=== PATIENT | female | born 1930 | race Caucasian/White ===

== ENCOUNTER 2017-01-01 17:36 | Emergency (ER) | payer MEDICARE, OTHER ==
[2017-01-01 18:02] VITALS: BP 148/71
--- NOTE | 2017-01-01 18:32 | UC ---
Complaint Female HPI - HPI Summary HPI Summary: Urinary pain, frequency, urgency starting today. Hx of frequent UTIs, was on daily macrobid for a year, was told to stop it by hyperbaric tech about 8 or 9 days ago before her transarterial valve replacement, she wasn't sure why. - History Of Current Complaint Chief Complaint: UCGU Stated Complaint: URINARY Time Seen by Provider: 01/01/17 18:06 Hx Obtained From: Patient, Family/Heel Sprayer First ?: No Onset/Duration: Gradual Onset, Lasting Hours Timing: Constant Severity Initially: Mild Severity Currently: Mild Character: Burning Aggravating Factor(s): Urination Associated Signs And Symptoms: Negative: Fever, Back Pain - Allergies/Home Medications Allergies/Adverse Reactions: Allergies Allergy/AdvReac Type Severity Reaction Status Date / Time Midazolam [From Versed] Allergy Severe DROP IN BP Verified 01/01/17 17:49 Morphine and Related Allergy Intermediate DIZZINES, Verified 11/16/15 19:24 FAINTNESS. 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 TAVR - Family History Known Family History: Positive: Hypertension - Social History Occupation: Retired Alcohol Use: Rare Substance Use Type: None Smoking Status (MU): Never Smoked Tobacco Have You Smoked in the Last Year: No - Immunization History Most Recent Influenza Vaccination: JUL 2016 Most Recent Tetanus Shot: 04/2011 Most Recent Pneumonia Vaccination: 2011 Review of Systems Constitutional: Negative Skin: Negative Eyes: Negative ENT: Negative Respiratory: Negative Cardiovascular: Negative Gastrointestinal: Negative Genitourinary: Frequency, Urgency Motor: Negative Neurovascular: Negative Musculoskeletal: Negative Neurological: Negative Psychological: Negative All Other Systems Reviewed And Are Negative: Yes Physical Exam Triage Information Reviewed: Yes Appearance: Well-Appearing, No Pain Distress, Thin Vital Signs: Initial Vital Signs Temp 98.5 F 01/01/17 17:50 Pulse 91 01/01/17 17:50 Resp 20 01/01/17 17:50 BP 148/71 01/01/17 17:50 Pulse Ox 96 01/01/17 17:50 Vital Signs Reviewed: Yes Eye Exam: Normal Eyes: Positive: Conjunctiva Clear ENT: Positive: Pharynx normal, Other: - wearing hearing aides. Negative: Tonsillar swelling, Tonsillar exudate Dental Exam: Other - dentures Neck exam: Normal Neck: Positive: Supple, Nontender, No Lymphadenopathy Respiratory Exam: Normal Respiratory: Positive: Chest non-tender, Lungs clear, Normal breath sounds, No respiratory distress, No accessory muscle use Cardiovascular Exam: Normal Cardiovascular: Positive: RRR, No Murmur Abdomen Description: Negative: CVA Tenderness (R), CVA Tenderness (L) Musculoskeletal Exam: Normal Neurological Exam: Normal Psychological Exam: Normal Skin Exam: Normal Complaint Female Dx - Differential Dx/Diagnosis Provider Diagnoses: UTI Discharge - Discharge Plan Condition: Stable Disposition: HOME Prescriptions: Ciprofloxacin HCl [Cipro 500 MG TAB] 500 mg PO BID #10 tab Patient Education Materials: Urinary Tract Infection in Women (ED) Referrals: Gregg Estes MD [Primary Care Provider] - 7 Days Additional Instructions: Please see Dr. Estes in about a week to make sure your infection is cleared, and to discuss whether you should be restarting your macrobid.
== END 2017-01-01 18:42 | disposition home or self-care (01) ==
LOC: UCCORT 17:36
DX: N39.0 Urinary tract infection, site not specified (principal); Z87.440 Personal history of urinary (tract) infections; Z95.2 Presence of prosthetic heart valve; Z79.01 Long term (current) use of anticoagulants; Z96.653 Presence of artificial knee joint, bilateral; Z98.42 Cataract extraction status, left eye; Z98.41 Cataract extraction status, right eye; Z88.5 Allergy status to narcotic agent; Z88.2 Allergy status to sulfonamides; Z88.8 Allergy status to other drugs, medicaments and biological substances
CPT/HCPCS: 81003; 87077; 87086; 87186; 99212; G0463

== ENCOUNTER 2018-01-31 16:24 | Emergency (ER) | payer MEDICARE, OTHER ==
--- OUTSIDE RECORDS SUMMARY | 2018-01-31 17:28 | XMS REPORT ---
:1930 External Reference #:[id number] Author Organization [facility] Address [address] [place] [address] Phone [phone] Care Team Providers Name Role Phone Vladimir Antunez MD Care Team Information Customer Service Teller Unavailable Gregg Estes MD Primary Care Physician Unavailable Payers Type Date Identification Numbers Payment Provider Subscriber Medicare Primary Policy Number: [id number] Medicare Brenda Ahn PayID: [id number] [address] [place] [address] [facility] Part B Policy Number: [id number] Apwu Brenda Ahn [address] [place] [address] Problems Date Description Provider Status Onset: 11/18/2014 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., [facility], Active coronary artery w/o ang pctrs [facility] Onset: 12/17/2016 Encounter for planned Willie Alvarado M.D., [facility], Active postprocedural wound closure [facility] Social History Type Date Description Comments Marital Status Lives With Alone Occupation Retired Cigarette Use Never Smoked Cigarettes Cigars Never Smoked Cigars Pipe Never Smoked A Pipe Smokeless Tobacco Never Used Smokeless Tobacco ETOH Use Denies alcohol use Smoking Patient has never smoked Recreational Drug Use Denies Drug Use Daily Caffeine Consumes on average 3 cups of regular coffee per day Exercise Type/Frequency Exercises rarely Allergies, Adverse Reactions, Alerts Date Description Reaction Status Severity Comments 08/12/2014 Versed active 08/12/2014 Artane loss of short term active Moderate to Severe memory 08/12/2014 Sulfa Antibiotics Urticaria active Moderate to Severe Medications Medication Date Status Form Strength Qnty SIG Indications Ordering Provider Clonazepam 01/02 Active Tablets 0.25mg 30tab 1 po qhs G24.4 Harinder Whitehead Zarina s [place] Clements Calcium Active Tablets 2 po qd Unknown 600/Vitamin D /0000 Botox Active Solution Unknown / Rec Aspirin DR Active Tablets 81mg [address] Calcitonin Active Solution 200Unit/A 3.7un spray one Unknown ([place]) / ct its spray intranasally every day alternating nostrils Procrit Active Solution 21803Evaq 1.5 Unknown /0000 /ML milliliters sc q 2 weeks as needed Nexium Active Capsules 20mg 30cap 1 by mouth Unknown /0000 DR brewster every day Folic Acid Active Tablets 1mg 1 by mouth Unknown /0000 every day Levothyroxine Active Tablets 88mcg 1 by mouth Unknown Sodium / every day Amoxicillin Active Tablets 500mg 4 tab by Unknown /0000 mouth 1 hour prior to dental appointment. Vitamin D3 Active Capsules 2000Unit 1 by mouth Unknown /0000 every day Preservision Active Capsules 2 by mouth Unknown Areds every evening Clobetasol Active Solution 0.05% apply to Unknown Propionate scalp prn Metoprolol 12/17 Hx Tablets 25mg 30tab 1/2 a pill I25.10 Willie Succinate ER /2016 ER 24HR s by mouth Christiano, - every day [place], 03/05 [facility], [facility] Clonazepam 12/22 Hx Tablets 0.5mg 90tab 1 by mouth G24.4 Cole Dispers s three times a Deloris, - day as needed 01/02 Clonazepam Odt 12/03 Hx Tablets 0.5mg 90tab 1 by mouth Florence Dispers s three times a Judy LEGAL BILLING SPECIALIST - day as needed 12/22 Amitriptyline 06/18 Hx Tablets 10mg 90tab take 1 tablet Cole HCL s every night Ganesh Puentes MD 01/22 Clonazepam 08/29 Hx 0.5mg 90uni 1 po tid prn Harinder Whitehead Ganesh Gaston M.D. 12/03 Ultracet 01/02 Hx Tablets 37.5-325m 30tab 1 - 2 po Marisa /2012 g s q4-6hr prn Ganesh Kirk M.D. 11/17 Clonazepam Hx Tablets 0.5mg 60tab 1 po bid prn Harinder Whitehead / Ganesh Castillo M.D. 08/29 Unithroid Hx Tablets 88mcg by mouth Unknown /0000 every day - 05/09 Amitriptyline Hx Tablets 30tab 1 tab by Unknown HCL / s mouth at - bedtime 06/18 Vitamin B-12 Hx Tablets 1000mcg 1 by mouth Unknown /0000 once daily - 01/29 Vitamin B-6 00 Hx Tablets 250mg 1 by mouth Unknown /0000 every day. - 01/14 Magnesium Hx Tablets 250mg 1 by mouth Unknown /0000 every day - 01/01 Co Q 10 Hx Capsules 1 capsule by Unknown /0000 mouth daily - 01/01 Beta Carotene 00 Hx Capsules [id number] once daily Unknown /0000 - 01/01 Nitrofurantoin Hx Capsules 100mg 1 by mouth a Unknown Macrocrystal / day - 01/21 Unithroid 00 Hx Tablets 88mcg one capsule Unknown /0000 daily - 03/05 L-Arginine Hx Capsules 500mg 2 po qday Unknown /0000 - 01/22 Plavix Hx Tablets 75mg 1 by mouth Unknown /0000 every day - 10/02 Glucosamine 00/00 Hx Capsules 1500Com 1 po qday Unknown Chondroitin /0000 1500 Complex - Maximum 01/27 Strength Medications Administered in Office Medication Date Status Form Strength Qnty SIG Indications Ordering Provider Injection 01/02 Administered Injection Harinder Whitehead Onabotulinumtoxin /2017 Starr, A, 1 Unit M.D. Injection 10/03 Administered Injection Harinder S. Onabotulinumtoxin /2016 Augusta, A, 1 Unit M.D. Injection 06/20 Administered Injection Harinder S. Onabotulinumtoxin /2016 [place], A, 1 Unit M.D. Injection 03/07 Administered Injection Harinder S. Onabotulinumtoxin /2016 Starr, A, 1 Unit M.D. Injection 03/07 Administered Injection Harinder S. Onabotulinumtoxin /2016 [place], A, 1 Unit M.D. Injection 12/06 Administered Injection Harinder S. Onabotulinumtoxin /2016 Starr, A, 1 Unit M.D. Injection 12/06 Administered Injection Harinder S. Onabotulinumtoxin /2016 [place]a, A, 1 Unit M.D. Injection 08/16 Administered Injection Harinder S. Onabotulinumtoxin /2015 [place], A, 1 Unit M.D. Injection 08/16 Administered Injection Harinder S. Onabotulinumtoxin /2015 Starr, A, 1 Unit M.D. Injection 05/10 Administered Injection Harinder S. Onabotulinumtoxin /2015 Augusta, A, 1 Unit M.D. Injection 05/10 Administered Injection Harinder S. Onabotulinumtoxin /2015 [place], A, 1 Unit M.D. Injection 01/18 Administered Injection Harinder S. Onabotulinumtoxin /2015 [place], A, 1 Unit M.D. Injection 09/22 Administered Injection Harinder S. Onabotulinumtoxin /2014 Starr, A, 1 Unit M.D. Injection 06/02 Administered Injection Harinder S. Onabotulinumtoxin /2014 [place], A, 1 Unit M.D. Injection 02/17 Administered Injection Harinder S. Onabotulinumtoxin /2014 Starr, A, 1 Unit M.D. Injection 11/18 Administered Injection Harinder S. Onabotulinumtoxin /2014 Starr, A, 1 Unit M.D. Injection 08/12 Administered Injection Harinder S. Onabotulinumtoxin /2013 Starr, A, 1 Unit M.D. Injection 05/06 Administered Injection Harinder S. Onabotulinumtoxin /2013 Starr, A, 1 Unit M.D. Injection 05/06 Administered Injection Harinder S. Onabotulinumtoxin /2013 Starr, A, 1 Unit M.D. Injection 01/28 Administered Injection Harinder S. Onabotulinumtoxin /2013 Starr, A, 1 Unit M.D. Injection 01/28 Administered Injection Harinder S. Onabotulinumtoxin /2013 [place], A, 1 Unit M.D. Injection 10/29 Administered Injection Harinder S. Onabotulinumtoxin /2013 Starr, A, 1 Unit M.D. Injection 10/29 Administered Injection Harinder S. Onabotulinumtoxin /2013 [place], A, 1 Unit M.D. Injection 07/23 Administered Injection Harinder S. Onabotulinumtoxin /2012 Starr, A, 1 Unit M.D. Injection 07/23 Administered Injection Harinder S. Onabotulinumtoxin /2012 [place], A, 1 Unit M.D. Injection 04/02 Administered Injection Harinder S. Onabotulinumtoxin /2012 Starr, A, 1 Unit M.D. Injection 04/02 Administered Injection Harinder S. Onabotulinumtoxin /2012 Starr, A, 1 Unit M.D. Injection 12/25 Administered Injection Harinder S. Onabotulinumtoxin /2012 [place], A, 1 Unit M.D. Injection 12/25 Administered Injection Harinder S. Onabotulinumtoxin /2012 [place], A, 1 Unit M.D. Injection 09/12 Administered Injection Harinder S. Onabotulinumtoxin /2011 [place], A, 1 Unit M.D. Injection 09/12 Administered Injection Harinder S. Onabotulinumtoxin /2011 Starr, A, 1 Unit M.D. Injection 05/26 Administered Injection Harinder S. Onabotulinumtoxin /2011 [place], A, 1 Unit M.D. Vital Signs Date Vital Result Comment 01/30/2018 Height 61 inches 5'1" Weight 113.00 lb Heart Rate 109 /min BP Systolic Sitting 122 mmHg BP Diastolic Sitting 68 mmHg Respiratory Rate 17 /min Pain Level 3 O2 % BldC Oximetry 94 % Ra BMI (Body Mass Index) 21.3 kg/m2 01/02/2018 Height 61 inches 5'1" Weight 117.00 lb Heart Rate 92 /min BP Systolic 100 mmHg BP Diastolic 78 mmHg Respiratory Rate 28 /min no respiratory difficulties Pain Level 0 O2 % BldC Oximetry 94 % BMI (Body Mass Index) 22.1 kg/m2 10/03/2017 Height 61 inches 5'1" Weight 112.00 lb Heart Rate 92 /min BP Systolic Sitting 126 mmHg BP Diastolic Sitting 74 mmHg Respiratory Rate 16 /min Pain Level 0 BMI (Body Mass Index) 21.2 kg/m2 06/20/2017 Height 61 inches 5'1" Weight 115.38 lb Heart Rate 97 /min BP Systolic Sitting 144 mmHg BP Diastolic Sitting 82 mmHg Respiratory Rate 24 /min O2 % BldC Oximetry 91 % BMI (Body Mass Index) 21.8 kg/m2 03/07/2017 Height 61 inches 5'1" Weight 118.00 lb Heart Rate 93 /min BP Systolic Sitting 126 mmHg BP Diastolic Sitting 74 mmHg Respiratory Rate 24 /min O2 % BldC Oximetry 88 % Ra BMI (Body Mass Index) 22.3 kg/m2 02/26/2017 Height 61 inches 5'1" Weight 118.00 lb Heart Rate 76 /min BP Systolic Sitting 132 mmHg BP Diastolic Sitting 70 mmHg Respiratory Rate 16 /min Pain Level 0 BMI (Body Mass Index) 22.3 kg/m2 12/17/2016 Height 61 inches 5'1" Weight 118.00 lb w/ shoes Heart Rate 84 /min reg BP Systolic Sitting 130 mmHg Rue, peds cuff BP Diastolic Sitting 100 mmHg Rue, peds cuff BP Systolic Standing 132 mmHg Rue BP Diastolic Standing 100 mmHg Rue Respiratory Rate 16 /min BMI (Body Mass Index) 22.3 kg/m2 Ejection Fraction 60% as of 11/07/16 echo 12/06/2016 Height 61 inches 5'1" Weight 119.00 lb Heart Rate 98 /min BP Systolic Sitting 134 mmHg BP Diastolic Sitting 62 mmHg Respiratory Rate 16 /min Pain Level 0 BMI (Body Mass Index) 22.5 kg/m2 08/16/2016 Heart Rate 78 /min BP Systolic Sitting 138 mmHg BP Diastolic Sitting 68 mmHg Pain Level 0 O2 % BldC Oximetry 94 % 05/10/2016 Height 61 inches 5'1" Weight 125.00 lb Heart Rate 92 /min BP Systolic Sitting 128 mmHg BP Diastolic Sitting 78 mmHg BMI (Body Mass Index) 23.6 kg/m2 01/19/2016 Height 61 inches 5'1" Weight 122.00 lb Heart Rate 84 /min BP Systolic Sitting 132 mmHg BP Diastolic Sitting 88 mmHg BMI (Body Mass Index) 23.0 kg/m2 09/22/2015 Heart Rate 88 /min BP Systolic Sitting 122 mmHg BP Diastolic Sitting 68 mmHg 06/02/2015 Height 61 inches 5'1" Weight 122.00 lb Heart Rate 76 /min BP Systolic Sitting 132 mmHg BP Diastolic Sitting 68 mmHg BMI (Body Mass Index) 23.0 kg/m2 02/17/2015 Height 61 inches 5'1" Weight 123.00 lb Heart Rate 78 /min BP Systolic Sitting 114 mmHg BP Diastolic Sitting 82 mmHg BMI (Body Mass Index) 23.2 kg/m2 11/18/2014 Height 61 inches 5'1" Weight 125.00 lb Heart Rate 88 /min BP Systolic Sitting 142 mmHg BP Diastolic Sitting 78 mmHg BMI (Body Mass Index) 23.6 kg/m2 08/12/2014 Height 61 inches 5'1" Weight 125.00 lb Heart Rate 97 /min BP Systolic Sitting 138 mmHg BP Diastolic Sitting 86 mmHg BMI (Body Mass Index) 23.6 kg/m2 05/06/2014 Weight 125.00 lb Heart Rate 84 /min BP Systolic Sitting 122 mmHg BP Diastolic Sitting 60 mmHg 01/03/2012 Height 62 inches 5'2" Weight 130.00 lb BP Systolic 112 mmHg BP Diastolic 64 mmHg BMI (Body Mass Index) 23.8 kg/m2 Results Test Date Test Result H/L Range Note Cath Panel 12/10/2016 Partial Thrombo Time PTT 32.9 seconds 26.0-36.3 CBC Auto Diff 12/10/2016 White Blood Count 7.8 10^3/uL 3.5-10.8 Red Blood Count 3.46 10^6/uL Low 4.0-5.4 Hemoglobin 10.3 g/dL Low 12.0-16.0 Hematocrit 32 % Low 35-47 Mean Corpuscular Volume 94 fL 80-97 Mean Corpuscular Hemoglobin 30 pg 27-31 Mean Corpuscular HGB Conc 32 g/dL 31-36 Red Cell Distribution Width 30 % High 10.5-15 Platelet Count 347 10^3/uL 150-450 Mean Platelet Volume 9 um3 7.4-10.4 Abs Neutrophils 6.9 10^3/uL 1.5-7.7 Abs Lymphocytes 0.5 10^3/uL Low 1.0-4.8 Abs Monocytes 0 10^3/uL 0-0.8 Abs Eosinophils 0.3 10^3/uL 0-0.6 Abs Basophils 0.1 10^3/uL 0-0.2 Abs Nucleated RBC 0.01 10^3/uL Granulocyte % 88.9 % High 38-83 Lymphocyte % 6.2 % Low 25-47 Monocyte % 0.5 % Low 1-9 Eosinophil % 3.6 % 0-6 Basophil % 0.8 % 0-2 Nucleated Red Blood Cells % 0.1 Inr/Protime 12/10/2016 Inr 0.97 0.89-1.11 Basic Metabolic Panel 12/10/2016 Sodium 139 mmol/L 133-145 Potassium 4.7 mmol/L 3.5-5.0 Chloride 105 mmol/L 101-111 Co2 Carbon Dioxide 29 mmol/L 22-32 Anion Gap 5 mmol/L 2-11 Glucose 123 mg/dL High 70-100 Blood Urea Nitrogen 18 mg/dL 6-24 Creatinine 0.72 mg/dL 0.51-0.95 BUN/Creatinine Ratio 25.0 High 8-20 Calcium 9.5 mg/dL 8.6-10.3 Egfr Non- 76.6 >60 Egfr 98.5 >60 1 Laboratory test finding 12/10/2016 Pathologist Review (SEE NOTE) 2 1 Because ethnic data is not always readily available, this report includes an eGFR for both -Americans and non- Americans. The National Kidney Disease Education Program (NKDEP) does not endorse the use of the MDRD equation for patients that are not between the ages of 18 and 70, are , have extremes of body size, muscle mass, or nutritional status, or are non- or non-. According to the National Kidney Foundation, irrespective of diagnosis, the stage of the disease is based on the level of kidney function: Stage Description GFR(mL/min/1.73 m(2)) 1 Kidney damage with normal or decreased GFR 90 2 Kidney damage with mild decrease in GFR 60-89 3 Moderate decrease in GFR 30-59 4 Severe decrease in GFR 15-29 5 Kidney failure <15 (or dialysis) 2 Mild normocytic anemia noted additional studies as clinically warranted. Procedures Date CPT Code Description Status Comment 01/02/2018 15785 Destruction W/Neurolytic Agent, Completed Facial Nerve Muscle, Unilateral 10/03/2017 09451 Destruction W/Neurolytic Agent, Completed Facial Nerve Muscle, Unilateral 06/20/2017 79971 Destruction W/Neurolytic Agent, Completed Facial Nerve Muscle, Unilateral 03/07/2017 40740 Destruction W/Neurolytic Agent, Completed Facial Nerve Muscle, Unilateral 12/11/2016 37186 Cath PLMT&NJX L Ventriculog Completed Img S&I 12/11/2016 18029 EKG, Interpretation Only Completed 12/06/2016 79081 Destruction W/Neurolytic Agent, Completed Facial Nerve Muscle, Unilateral 08/17/2016 Diabetic Retinal Eye Exam Completed Document: 08/17/16 - Consult Ophthalmology-Bersani 08/16/2016 97491 Destruction W/Neurolytic Agent, Completed Facial Nerve Muscle, Unilateral 05/10/2016 35510 Destruction W/Neurolytic Agent, Completed Facial Nerve Muscle, Unilateral 03/05/2016 Diabetic Retinal Eye Exam Completed 01/19/2016 83742 Destruction W/Neurolytic Agent, Completed Facial Nerve Muscle, Unilateral 09/22/2015 61824 Destruction W/Neurolytic Agent, Completed Facial Nerve Muscle, Unilateral 06/02/2015 40914 Destruction W/Neurolytic Agent, Completed Facial Nerve Muscle, Unilateral 02/17/2015 24577 Destruction W/Neurolytic Agent, Completed Facial Nerve Muscle, Unilateral 11/18/2014 46140 Destruction W/Neurolytic Agent, Completed Facial Nerve Muscle, Unilateral 08/12/2014 26362 Destruction W/Neurolytic Agent, Completed Facial Nerve Muscle, Unilateral 05/06/2014 32969 Destruction W/Neurolytic Agent, Completed Facial Nerve Muscle, Unilateral 01/28/2014 87692 Destruction W/Neurolytic Agent, Completed Facial Nerve Muscle, Unilateral 10/29/2013 08958 Destruction W/Neurolytic Agent, Completed Facial Nerve Muscle, Unilateral 07/23/2013 76501 Destruction W/Neurolytic Agent, Completed Facial Nerve Muscle, Unilateral 04/02/2013 48780 Destruction W/Neurolytic Agent, Completed Facial Nerve Muscle, Unilateral 12/25/2012 42610 Destruction W/Neurolytic Agent, Completed Facial Nerve Muscle, Unilateral 09/12/2012 71252 Destruction W/Neurolytic Agent, Completed Facial Nerve Muscle, Unilateral 05/26/2012 99766 Destruction W/Neurolytic Agent, Completed Facial Nerve Muscle, Unilateral 01/08/2012 16190 Carpal Tunnel Release Completed Encounters Type Date Location Provider CPT E/M Dx Office Visit 01/02/2018 [facility] Harinder Clements, 40558 G24.5 2:00p [facility] [place].Zachariah G24.4 R53.83 Office Visit 02/26/2017 2:00p [facility]y Aguero, 05337 H61.23 At [place] [facility] Office Visit 12/17/2016 10:00a [facility] Willie Alvarado M.D., 48981 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[facility], [facility] Z48.1 I10 Office Visit 04/02/2013 1:00p [facility] Harinder Clements, 19525 333.81 [facility] [place].Zachariah 333.82 Office Visit 09/12/2012 1:00p [facility] Harinder Clements, 02106 333.82 Services Of Dairy Science Teacher A[place].Zachariah 333.81 Office Visit 05/26/2012 2:15p [facility] Harinder Clements 87719 333.82 Services Of Dairy Science Teacher M.DKamran Office Visit 12/20/2011 9:30a [facility] Marisa Kirk, 52815 354.0 [facility] [place] 719.44 Plan of Care Future Appointment(s):07/17/2018 2:00 pm - Harinder Clements M.D. at [facility]04/10/2018 2:00 pm - Harinder Clements M.D. at [facility]01/30/2018 - Harinder Clements M.D.G24.4 Idiopathic orofacial dystoniaFollow up:as scheduled for BotoxRecommendations: stop AM clonazopam but continue nighttime doseG62.9 Polyneuropathy, unspecifiedNew Labs:Hemoglobin A1c (Glyco HGB)HomocysteineLyme Disease SerologyMethylmalonic Acid MmaProtein ElectrophoresisTSH (Thyroid Stim Horm) Vitamin B12
--- OUTSIDE RECORDS SUMMARY | 2018-01-31 17:49 | XMS REPORT ---
:1930 External Reference #:[id number] Author Organization [facility] Address [address] [place] [address] Phone [phone] Care Team Providers Name Role Phone Vladimir Antunez MD Care Team Information Watch Commander Unavailable Gregg Estes MD Primary Care Physician Unavailable Payers Type Date Identification Numbers Payment Provider Subscriber Medicare Primary Policy Number: [id number] Medicare Brenda Ahn PayID: [id number] [address] [place] [address] [facility] Part B Policy Number: [id number] Apwu Brenda Ahn [address] [place] [address] Problems Date Description Provider Status Onset: 11/18/2014 Blepharospasm Harinder Clements M.D. Active Onset: 12/17/2016 [facility] [place] Willie Alvarado M.D., [facility], Active coronary artery w/o ang pctrs [facility] Onset: 12/17/2016 Encounter for planned Willie Alvarado M.D., [facility], Active postprocedural wound closure [facility] Social History [...] Ordering Provider Clonazepam 01/02 Active Tablets 0.25mg 15tab 1 po bid G24.4 Harinder Whitehead /2018 Zarina Clements M.D. Amitriptyline 06/18 Active Tablets 10mg 90tab take 1 tablet Cole HCL /2012 s every night MD Deloris Calcium Active Tablets 2 po qd Unknown 600/Vitamin D / Botox Active Solution Unknown Rec Vitamin B-12 Active Tablets 1000mcg 1 by mouth Unknown /[address] Active Tablets 81mg 1 po qd Unknown / DR Calcitonin Active Solution 200Unit/A 3.7un spray one Unknown ([place]) / ct its spray intranasally every day alternating nostrils Procrit Active Solution 16149Voqg 1.5 Unknown /0000 /ML milliliters sc q 2 weeks as needed Nexium Active Capsules 20mg 30cap 1 by mouth Unknown / DR brewster every day Vitamin B-6 Active Tablets 250mg 1 by mouth Unknown /0000 every day. Folic Acid Active Tablets 1mg 1 by mouth Unknown /0000 every day Levothyroxine Active Tablets 88mcg 1 by mouth Unknown Sodium /0000 every day Amoxicillin Active Tablets 500mg 4 tab by Unknown /0000 mouth 1 hour prior to dental appointment. Nitrofurantoin Active Capsules 100mg 1 by mouth a Unknown Macrocrystal / day Vitamin D3 Active Capsules 2000Unit 1 by mouth Unknown /0000 every day Preservision Active Capsules 1 po bid with Unknown Areds meals L-Arginine Active Capsules 500mg 2 po qday Unknown /0000 Glucosamine Active Capsules 1500Com 1 po qday Unknown Chondroitin / 1500 Complex Maximum Strength Clobetasol Active Solution 0.05% apply to Unknown Propionate scalp prn Metoprolol 12/17 Hx Tablets 25mg 30tab 1/2 a pill I25.10 Willie Succinate ER ER 24HR s by mouth Stefek, - every day M.DKamran, 03/05 [facility], [facility] Clonazepam 12/22 Hx Tablets 0.5mg 90tab 1 by mouth G24.4 Dispers s three times a Deloris, - day as needed 01/02 Clonazepam Odt 12/03 Hx Tablets 0.5mg 90tab 1 by mouth Florence Dispers s three times a 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 12/03 Ultracet 01/02 Hx Tablets 37.5-325m 30tab 1 - 2 po g s q4-6hr prn Ganesh Kirk M.D. 11/17 Clonazepam Hx Tablets 0.5mg 60tab 1 po bid prn Harinder Whitehead /0000 Ganesh Castillo M.D. 08/29 Unithroid Hx Tablets 88mcg by mouth Unknown /0000 every day - 05/09 Amitriptyline Hx Tablets 30tab 1 tab by Unknown HCL /0000 s mouth at - bedtime 06/18 Magnesium Hx Tablets 250mg 1 by mouth Unknown /0000 every day - 01/01 Co Q 10 Hx Capsules 1 capsule by Unknown /0000 mouth daily - 01/01 Beta Carotene Hx Capsules [id number] once daily Unknown /0000 - 01/01 Unithroid 00 Hx Tablets 88mcg one capsule Unknown /0000 daily - 03/05 Plavix Hx Tablets 75mg 1 by mouth Unknown /0000 every day - 10/02 Medications Administered in Office Medication Date Status Form Strength Qnty SIG Indications Ordering Provider Injection 10/03 Administered Injection Harinder Whitehead Onabotulinumtoxin /2016 Sukumar Clements 1 Unit M.D. Injection 06/20 Administered Injection Harinder Whitehead Onabotulinumtoxin Sukumar Clements 1 Unit M.D. Injection 03/07 Administered Injection Harinder S. Onabotulinumtoxin /2016 [facility], A, 1 Unit M.D. Injection 03/07 Administered Injection Harinder S. Onabotulinumtoxin /2016 Starr, A, 1 Unit M.D. Injection 12/06 Administered Injection Harinder S. Onabotulinumtoxin /2016 [facility], A, 1 Unit M.D. Injection 12/06 Administered Injection Harinder S. Onabotulinumtoxin /2016 Starr, A, 1 Unit M.D. Injection 08/16 Administered Injection Harinder S. Onabotulinumtoxin /2015 [facility], A, 1 Unit M.D. Injection 08/16 Administered Injection Harinder S. Onabotulinumtoxin /2015 [facility], A, 1 Unit M.D. Injection 05/10 Administered Injection Harinedr S. Onabotulinumtoxin /2015 [facility], A, 1 Unit M.D. Injection 05/10 Administered Injection Harinder S. Onabotulinumtoxin /2015 Starr, A, 1 Unit M.D. Injection 01/18 Administered Injection Harinder S. Onabotulinumtoxin /2015 Starr, A, 1 Unit M.D. Injection 09/22 Administered Injection Harinder S. Onabotulinumtoxin /2014 Starr, A, 1 Unit M.D. Injection 06/02 Administered Injection Harinder S. Onabotulinumtoxin /2014 [facility], A, 1 Unit M.D. Injection 02/17 Administered Injection Harinder S. Onabotulinumtoxin /2014 Starr, A, 1 Unit M.D. Injection 11/18 Administered Injection Harinder S. Onabotulinumtoxin /2014 [facility], A, 1 Unit M.D. Injection 08/12 Administered [...] 10/29 Administered Injection Harinder S. Onabotulinumtoxin /2013 [facility], A, 1 Unit M.D. Injection 10/29 Administered Injection Harinder S. Onabotulinumtoxin /2013 Satrr, A, 1 Unit M.D. Injection 07/23 Administered Injection Harinder S. Onabotulinumtoxin /2012 Starr, A, 1 Unit M.D. Injection 07/23 Administered Injection Harinder S. Onabotulinumtoxin /2012 [facility], A, 1 Unit M.D. Injection 04/02 Administered Injection Harinder S. Onabotulinumtoxin /2012 [facility], A, 1 Unit M.D. Injection 04/02 Administered Injection Harinder S. Onabotulinumtoxin /2012 Starr, A, 1 Unit M.D. Injection 12/25 Administered Injection Harinder S. Onabotulinumtoxin /2012 Starr, A, 1 Unit M.D. Injection 12/25 Administered Injection Harinder S. Onabotulinumtoxin /2012 [facility], A, 1 Unit M.D. Injection 09/12 Administered Injection Harinder S. Onabotulinumtoxin /2011 [facility], A, 1 Unit M.D. Injection 09/12 Administered Injection Harinder S. Onabotulinumtoxin /2011 [facility], A, 1 Unit M.D. Injection 05/26 Administered Injection Harinder S. Onabotulinumtoxin /2011 [facility], A, 1 Unit M.D. Vital Signs Date Vital Result Comment 01/02/2018 Height 61 inches 5'1" Weight 117.00 [...] Procedures Date CPT Code Description Status Comment 10/03/2017 01735 Destruction W/Neurolytic Agent, Completed Facial Nerve Muscle, Unilateral 06/20/2017 34047 Destruction W/Neurolytic Agent, Completed Facial Nerve Muscle, Unilateral 03/07/2017 18346 Destruction W/Neurolytic Agent, Completed Facial Nerve Muscle, Unilateral 12/11/2016 36175 Cath PLMT&NJX L Ventriculog Completed Img S&I 12/11/2016 83670 EKG, Interpretation Only Completed 12/06/2016 12348 Destruction W/Neurolytic Agent, Completed Facial Nerve Muscle, Unilateral 08/17/2016 Diabetic Retinal Eye Exam Completed Document: 08/17/16 - Consult Ophthalmology-Bersani 08/16/2016 57787 Destruction W/Neurolytic Agent, Completed Facial Nerve Muscle, Unilateral 05/10/2016 62304 Destruction W/Neurolytic Agent, Completed Facial Nerve Muscle, Unilateral 03/05/2016 Diabetic Retinal Eye Exam Completed 01/19/2016 21398 Destruction W/Neurolytic Agent, Completed Facial Nerve Muscle, Unilateral 09/22/2015 95235 Destruction W/Neurolytic Agent, Completed Facial Nerve Muscle, Unilateral 06/02/2015 05633 Destruction W/Neurolytic Agent, Completed Facial Nerve Muscle, Unilateral 02/17/2015 44681 Destruction W/Neurolytic Agent, Completed Facial Nerve Muscle, Unilateral 11/18/2014 01734 Destruction W/Neurolytic Agent, Completed Facial Nerve Muscle, Unilateral 08/12/2014 74220 Destruction W/Neurolytic Agent, Completed Facial Nerve Muscle, Unilateral 05/06/2014 48805 Destruction W/Neurolytic Agent, Completed Facial Nerve Muscle, Unilateral 01/28/2014 18202 Destruction W/Neurolytic Agent, Completed Facial Nerve Muscle, Unilateral 10/29/2013 96695 Destruction W/Neurolytic Agent, Completed Facial Nerve Muscle, Unilateral 07/23/2013 20043 Destruction W/Neurolytic Agent, Completed Facial Nerve Muscle, Unilateral 04/02/2013 26198 Destruction W/Neurolytic Agent, Completed Facial Nerve Muscle, Unilateral 12/25/2012 20427 Destruction W/Neurolytic Agent, Completed Facial Nerve Muscle, Unilateral 09/12/2012 87005 Destruction W/Neurolytic Agent, Completed Facial Nerve Muscle, Unilateral 05/26/2012 90525 Destruction W/Neurolytic Agent, Completed Facial Nerve Muscle, Unilateral 01/08/2012 33488 Carpal Tunnel Release Completed Encounters Type Date Location Provider CPT E/M Dx Office Visit 02/26/2017 [facility], [address]49 H61.23 2:00p [facility] Office Visit 12/17/2016 [facility] Willie Alvarado M.D., 59303 I25.10 10:00a [employer] At [facility], [facility] Z48.1 I10 Office Visit 04/02/2013 1:00p [facility]Gregorio Clements, 63355 333.81 [facility] 333.82 Office Visit 09/12/2012 1:00p [facility] Harinder Clements, 67652 333.82 [facility] 333.81 Office Visit 05/26/2012 2:15p [facility] Harinder Clements, 28657 333.82 [facility] Office Visit 12/20/2011 9:30a [facility], 11099 354.0 [facility] 719.44 Plan of Care Future Appointment(s):03/27/2018 10:45 am - Harinder Clements M.D. at [facility]04/10/2018 2:00 pm - Harinder Clements M.D. at [facility]01/02/2018 - Harinder Clements M.D.G24.4 Idiopathic orofacial dystoniaNew Medication:Clonazepam 0.25 mgFollow up:3 months for botoxRecommendations:I recommend you stop amitriptyline I recommend you decrease clonazepam to 0.25 mg twice a day Callme in 3 to 4 weeks to report in and I will taper your med further
--- NOTE | 2018-01-31 17:51 | UC ---
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 Confusion per daughter with chills , small vomiting today and yesterday. Concerned with possible UTI, took 1 macrodantin today. " -1st dose of macrodantin was given today. she was supposed to be it on it prior but has not been for some reason. -slight vomit x 1 yesterday and slight today in waiting room. -minimal cough for only a short time this afternoon -confusion reported when she was lying down today per dtr Elsy who is here with her. CHRISTINA in waiting room. -denies dysuria or hematuria. although Elsy states that she is not historically a good historian with UTI sx. -Elsy reporst confusion has improved while here -unaware of any lung disease. -shaking chills this afternoon - History of Current Complaint Chief Complaint: UCGeneralIllness Stated Complaint: FEVER/CHILLS/COUGH Time Seen by Provider: 01/31/18 17:34 Pain Intensity: 0 - Allergy/Home Medications Allergies/Adverse Reactions: Allergies Allergy/AdvReac Type Severity Reaction Status Date / Time midazolam [From Versed] Allergy Intermediate See Comment Verified 01/31/18 17:41 morphine Allergy Dizziness Verified 01/31/18 17:41 Sulfa (Sulfonamide Allergy Rash Verified 01/31/18 17:41 Antibiotics) trihexyphenidyl [From Artane] AdvReac See Comment Verified 01/31/18 17:41 Home Medications: Home Medications Acetaminophen TAB* [Tylenol TAB*] 650 mg PO Q4H PRN 01/31/18 [History Confirmed 01/31/18] Levothyroxine TAB* [Synthroid TAB*] 88 mcg PO DAILY 01/31/18 [History Confirmed 01/31/18] Nitrofurantoin Macrocrystals* [Macrodantin*] 100 mg PO DAILY 01/31/18 [History Confirmed 01/31/18] Omeprazole CAP* [Prilosec CAP* 20 MG] 20 mg PO DAILY 01/31/18 [History Confirmed 01/31/18] PMH/Surg Hx/FS Hx/Imm Hx Previously Healthy: Yes Endocrine History: Hypothyroidism GI/ History: Gastroesophageal Reflux Psychological History: Anxiety - Surgical History Surgical History: Yes Surgery Procedure, Year, and Place: BILATERAL KNEE REPACEMENTS, TONSILECTOMY, right side carpal tunnel, bilat cataract surg, Broken pelvis- 03/01/15. TAVR - Family History Known Family History: Positive: Hypertension - Social History Alcohol Use: Rare Substance Use Type: None Smoking Status (MU): Never Smoked Tobacco Have You Smoked in the Last Year: No - Immunization History Most Recent Influenza Vaccination: JUL 2016 Most Recent Tetanus Shot: 04/2011 Most Recent Pneumonia Vaccination: 2011 Review of Systems Constitutional: Fever, Chills, Fatigue Skin: Negative Eyes: Negative ENT: Negative Respiratory: Cough - minimal Cardiovascular: Negative Gastrointestinal: Vomiting Genitourinary: Negative Motor: Negative Neurovascular: Negative Musculoskeletal: Negative Neurological: Negative Psychological: Other - waxing/waning confusion today Is Patient Immunocompromised?: No All Other Systems Reviewed And Are Negative: Yes Physical Exam Triage Information Reviewed: Yes Appearance: Well-Appearing, No Pain Distress, Well-Nourished - in wheelchair. attentive. good eye contact. Most of history is provided by dtr. Vital Signs: Initial Vital Signs Temp 100.2 F 01/31/18 17:29 Pulse 118 01/31/18 17:29 Resp 36 01/31/18 17:29 BP 129/95 01/31/18 17:29 Pulse Ox 89 01/31/18 17:29 Vital Signs Reviewed: Yes Eye Exam: Normal ENT Exam: Normal ENT: Positive: Other - Mucous membranes very dry. OP - clear Dental Exam: Normal Neck exam: Normal Neck: Positive: Supple, Nontender, No Lymphadenopathy Respiratory: Positive: Chest non-tender, Lungs clear, Normal breath sounds, No respiratory distress, Respiratory distress - tachypnic. doesnt speak much to evaluate for dyspnea, Decreased breath sounds. Negative: Crackles, Rhonchi, Stridor, Wheezing Cardiovascular: Positive: No Murmur, Pulses Normal, Tachycardia Abdomen Description: Positive: Nontender, Soft. Negative: CVA Tenderness (R), CVA Tenderness (L) Musculoskeletal Exam: Normal Neurological Exam: Normal Psychological Exam: Normal Skin Exam: Normal Course/Dx - Course Course Of Treatment: CXR - chrobnic interstitial disease w/ superimposed pneumonia or less likely heart failure. -reviewed lung disease component with them as well as thet were unaware of this dx. -no edema in legs and clincial picture is more c/w pneumonia rather than CHF. -I recommend eval for probable admission - dehydrated, tachypnic and tachycardic. O2 sat improves from 88% to 93% on room air. -recommend admission w/ IVF, IV abx, O2 and nebs. -they prefer to go by private car - Differential Dx - Multi-Symptom Differential Diagnoses: Urinary Tract Infection, Other Provider Diagnoses: pneumonia, dehydration. Discharge - Sign-Out/Discharge Documenting (check all that apply): Discharge - Discharge Plan Condition: Fair Disposition: TRANS [facility] LVL OF CARE FAC Patient Education Materials: Pneumonia (ED) Referrals: Gregg Estes MD [Primary Care Provider] - Additional Instructions: Please go directlty to the ER for care of pneumonia. We discussed concern of potential rapid decline in light of fast heart rate, respiratory rate and decreased oxygen saturation. we haev given you a copy of the chest xray report and CD with images. - Billing Disposition and Condition Condition: FAIR Disposition: EMTALA
--- NOTE | 2018-01-31 18:22 | RAD ---
INDICATION: Fever cough and confusion. COMPARISON: There are no prior studies available for comparison. TECHNIQUE: Dual-energy PA and lateral views of the chest were obtained. FINDINGS: The heart appears within normal limits in size. The patient appears to be status post aortic valve surgery. There is diffuse prominence of the interstitial markings and scattered patchy infiltrates present throughout both lungs. There are trace bilateral pleural effusions. IMPRESSION: FINDINGS MOST CONSISTENT WITH CHRONIC INTERSTITIAL LUNG DISEASE WITH SUPERIMPOSED PNEUMONIA OR LESS LIKELY CONGESTIVE HEART FAILURE
[2018-01-31 18:43] VITALS: BP 133/65
--- NOTE | 2018-02-03 07:26 | ED ---
Progress - Progress Note Progress Note: Please call patient/family, and be sure patient made it to hospital, was admitted and treated for her urine. Course/Dx - Course Course Of Treatment: CXR - chrobnic interstitial disease w/ superimposed pneumonia or less likely heart failure. -reviewed lung disease component with them as well as thet were unaware of this dx. -no edema in legs and clincial picture is more c/w pneumonia rather than CHF. -I recommend eval for probable admission - dehydrated, tachypnic and tachycardic. O2 sat improves from 88% to 93% on room air. -recommend admission w/ IVF, IV abx, O2 and nebs. -they prefer to go by private car Discharge - Sign-Out/Discharge Documenting (check all that apply): Discharge - Discharge Plan Condition: Fair Disposition: TRANS HIGHER LVL OF CARE FAC Patient Education Materials: Pneumonia (ED) Referrals: Grgeg Estes MD [Primary Care Provider] - Additional Instructions: Please go directlty to the ER for care of pneumonia. We discussed concern of potential rapid decline in light of fast heart rate, respiratory rate and decreased oxygen saturation. we haev given you a copy of the chest xray report and CD with images. - Billing Disposition and Condition Condition: FAIR Disposition: EMTGONZALES
== END 2018-01-31 19:05 | disposition short-term general hospital (02) ==
LOC: UCCORT 16:24
DX: J18.9 Pneumonia, unspecified organism (principal); E86.0 Dehydration; Z88.5 Allergy status to narcotic agent; Z88.2 Allergy status to sulfonamides; Z88.8 Allergy status to other drugs, medicaments and biological substances; E03.9 Hypothyroidism, unspecified; K21.9 Gastro-esophageal reflux disease without esophagitis
CPT/HCPCS: 71046; 81003; 87077; 87086; 87186; 87502; 99212; G0463